=== PATIENT | male | born 1970 | race Caucasian/White ===

== ENCOUNTER 2016-12-12 12:44 | Emergency (ER) | payer OTHER ==
[~2016-12-12] VITALS: Ht 167.6 cm; Wt 81.6 kg
[2016-12-12 12:47] VITALS: BP 131/68
--- NOTE | 2016-12-12 12:57 | NUR ---
Patient ambulated to bed 6. RN evaluating patient at bedside.
--- NOTE | 2016-12-12 13:00 | NUR ---
PT PRESENTS TO ER W/C/O CHEST PAIN X1 WEEK. PT DENIES ANY OTHER MEDICAL HX.PAIN RADIATES TO LEFT ARM AND NECK;PT STATES HE IS A HEAVY SMOKER;DENIES N/V/COUGH/F AT THIS TIME;AAOX4 NO ACUTE DISTRESS NOTED AT THIS TIME;HOB ELEVATED;NEEDS ATTENDED;SAFETY MEASURES DONE;ALL MONITORS IN PLACED;ERMD MADE AWARE OF PT'S CONDITION;
--- NOTE | 2016-12-12 13:02 | NUR ---
Kimberly giron in [facility] - 12/12/16 at [address] Williamson evaluating patient at bedside.
--- NOTE | 2016-12-12 13:22 | NUR ---
Dr. Williamson evaluating patient at bedside.
[2016-12-12] MEDS ORDERED: KETOROLAC 60 MG/2 ML VIAL IM ONE (13:30)
[2016-12-12 14:46] VITALS: BP 119/74
== END 2016-12-12 14:45 | disposition home or self-care (01) ==
LOC: MED 12:44
DX: R07.89 Other chest pain (principal); R03.0 Elevated blood-pressure reading, without diagnosis of hypertension; M79.602 Pain in left arm
CPT/HCPCS: 71010; 93005; 96372; 99284; J1885; Q0092